=== PATIENT | male | born 1995 | race Caucasian/White ===

== ENCOUNTER 2019-03-31 00:43 | Emergency (ER) | payer BC, SELFPAY ==
[2019-03-31 00:45] VITALS: BP 148/73; PULSE 76; RESP 18; TEMP 36.9; O2SAT 98; BMI 37.8
--- NOTE | 2019-03-31 00:49 | RAD_ITS ---
HISTORY:PRESSURE IN CHEST FOR ABOUT A WEEK/WORSE TODAY WITH COUGH PRESSURE IN CHEST FOR ABOUT A WEEK/WORSE TODAY WITH COUGH EXAM: XR Chest 2 Views: COMPARISON: August 28, 2016 this doctor FINDINGS: # of images incl. paperwork: 2 LINES/DEVICES: None. LUNGS: Radiographically clear. No consolidation, edema or effusion. No pneumothorax. MEDIASTINUM AND CARDIOVASCULAR STRUCTURES: Cardiac silhouette not enlarged. BONES AND SOFT TISSUES: Unremarkable. RAD/Chest PA and Lateral IMPRESSION: No radiographic evidence of acute cardiopulmonary disease. at 0203 Reported and signed by: Taylor Hargrove DO Electronically Signed: Taylor Hargrove DO at 2:03 EDT Tel , Service support ,
--- NOTE | 2019-03-31 00:56 | ED.VIS.GEN ---
History of Present Illness Chief Complaint: Shortness of Breath Informant: Patient Onset: Days Context: Gradual Onset Timing: Continuous Current Severity: Moderate Maximum Severity: Moderate Narrative: The patient presents to the emergency department with a week of cough and shortness of breath. He states that he had a scant cough. Over the past few days, he had chest tightness and feels like he cannot catch his breath. He denies any fevers or chills. He states that he does vape. He denies any underlying history of lung disease. Patient was otherwise in his normal state of health. He denies chest pain. Prior similar symptoms: No Recent Illness/Hospitalization: No Past Medical History - Allergies and Home Meds Allergies/Adverse Reactions: Allergies No Known Allergies Allergy (Verified 03/31/19 00:49) Primary Care Physician: Care Physician,No Primary [Primary Care Provider] - Prior records reviewed: Yes Past Medical History: None Surgical History: no surgical history Smoking Status: Former smoker Review of Systems General: Denies: Chills, Fever, Sweats Eyes: Denies: Visual changes - bilaterally, Diplopia ENT: Denies: Rhinorrhea, Sore throat Cardiovascular: Denies: Chest pain, Palpitations Respiratory: Reports: Dyspnea, Cough. Denies: Dyspnea on exertion Gastrointestinal: Denies: Abdominal pain, Nausea, Vomiting, Diarrhea, Melena, Hematochezia Genitourinary: Denies: Dysuria, Hematuria, Frequency Musculoskeletal: Denies: Back pain, Extremity Pain Skin: Denies: Rash, Wounds Neurological: Denies: Headache, Weakness, Numbness Physical Exam Vital Signs/Narrative: Vital Signs Temp Pulse Resp BP Pulse Ox 03/31/19 00:45 98.4 F 76 18 148/73 H 98 Inital Vital Signs reviewed: Yes General: Well nourished, Well developed, No Acute Distress Head: Normocephalic, Atraumatic Eyes: Perrl, EOMI ENT: Moist mucous membranes, No rhinorrhea Neck: Supple, Nontender Cardiovascular: Regular rate, Regular rhythm, No murmurs Respiratory: No distress, CTA bilaterally, Chest nontender Abdomen: Soft, Nontender, Nondistended, Normal bowel sounds Back: Nontender, Normal Inspection Extremities: Nontender, No edema Skin: Normal color, No rash Neurological: Alert, Oriented x3, Cranial nerves II-XII grossly intact, Normal Strength, Normal Sensation Psychological: Normal affect, Normal Mood Diagnostic/Tx/Re-eval Chest X-Ray - ED: 2 View, Read by ED Physician, Read by Radiologist, Normal, Heart, Mediastinum, Bony Structures, Right Infiltrate - Medical Decision Making The patient symptoms do seem consistent with a respiratory infectious process. He does have some coarse lung sounds in his right base with some prolonged expiration. He was given a breathing treatment with improvement of his aeration. His chest x-ray was read as negative, however there is some haziness along the right lower lung and heart border. My concerns for early pneumonia. I do feel that the most prudent thing would be to treat the patient with oral antibiotics. He did have improvement with breathing treatment, he will also be dispensed an inhaler and I will place him on prednisone. He is not hypoxic. He has no tachycardia. I do feel it is safe for outpatient therapy. He was counseled on concerning symptoms and reasons to return. He will be discharged home. Impression 1. Right lower lobe pneumonia ED Disposition - Plan for ED Patient: Instructions: PNEUMONIA (Adult) Prescriptions: Prednisone [Deltasone] 40 mg PO DAILY #10 tab Prescription Printed Azithromycin [Zithromax] 250 mg PO DAILY #4 tab Prescription Printed Referrals: Care Physician,No Primary [Primary Care Provider] -
[2019-03-31] MEDS: Ipratropium/Albuterol Sulfate 3 ML AMPUL.NEB INHALATION (00:57)
[2019-03-31 00:58] VITALS: PULSE 85; RESP 16
[2019-03-31] MEDS: Azithromycin 250 MG Tablet 500 MG PO (02:07)
[2019-03-31] MEDS: predniSONE 20 MG Tablet 60 MG PO (02:07)
[2019-03-31 02:13] VITALS: BP 140/67; PULSE 82; RESP 16; O2SAT 97
== END 2019-03-31 02:13 | disposition home or self-care (01) ==
LOC: ED 01:38
PROVIDERS: Emergency Provider Emergency Medicine
DX: J18.9 Pneumonia, unspecified organism (principal); Z87.891 Personal history of nicotine dependence
CPT/HCPCS: 71046; 94640; 99283